=== PATIENT | male | born 1970 | race Caucasian/White ===

== ENCOUNTER 2016-08-31 14:43 | Emergency (ER) | payer SELFPAY ==
[~2016-08-31] VITALS: Ht 190.5 cm; Wt 106.6 kg
[~2016-08-31 14:43] MED LIST: BENZONATATE100 MG PO; NO HOME MEDS; OMEPRAZOLE20 M1 PO; ZYRTEC10 M1 PO
[2016-08-31 17:52] VITALS: BP 147/100
== END 2016-08-31 17:53 | disposition home or self-care (01) ==
LOC: EME 14:43
DX: J02.8 Acute pharyngitis due to other specified organisms (principal); Z87.891 Personal history of nicotine dependence
CPT/HCPCS: 71020; 87651 90; 99281; 99283